=== PATIENT | male | born 1960 ===

== ENCOUNTER 2017-06-14 14:10 | Inpatient (IN) | payer OTHER, MEDICARE ==
[~2017-06-14] VITALS: Ht 188 cm; Wt 134.2 kg
[2017-06-14] MEDS ORDERED: NURSING INFORMATION XX SCH (15:00)
[2017-06-14] MEDS ORDERED: CHLORHEXIDINE GLUCONATE 2 % 1 PACK (2 CLOTHS) TOP PRN (15:00)
[2017-06-14 16:00] VITALS: BP 146/91; PULSE 92; RESP 20; TEMP 98.3; O2SAT 95
[2017-06-14] MEDS ORDERED: RESP: ALBUTEROL 2.5 MG/IPRATROPIUM 0.5 MG NEB (PRN) INH (16:00)
[2017-06-14] MEDS: ENOXAPARIN SODIUM 40 MG/0.4 ML SYRINGE SQ SCH (16:00)
--- NOTE | 2017-06-14 16:13 | HHI.HP ---
HPI Service Critical Care Medicine Primary Care Physician Unknown Admission Diagnosis Diagnosis: (1) Acute CVA (cerebrovascular accident) Diagnosis: Principal (2) Left hemiparesis Diagnosis: Principal (3) CAD (coronary artery disease) Diagnosis: Secondary (4) Hypertension Diagnosis: Secondary (5) Diabetes Diagnosis: Secondary (6) Obesity Diagnosis: Secondary Chief Complaint: Acute CVA with left hemiparesis Travel History International Travel<30 Days: No Contact w/Intl Traveler <30 Da: No Traveled to Known Affected Are: No History of Present Illness Patient is a 57-year-old male with past medical history significant for coronary artery disease, acute NH, diabetes, hypertension, kidney stones, thyroid disease who presented to the [facility] ER with history of acute onset left-sided weakness and numbness and blurry vision in the left eye. A stat CT of the head was negative for acute findings. Telemetry neurologist was consulted who recommended against TPA. Patient was transferred to [facility] for further workup including MRI and MRA, and evaluation for IR intervention as needed. I evaluated the patient in the ICU. He is not in any acute distress but continues to have 4 out of 5 power in the left side. Sensations preserved. NIH stroke scale 2. Neurology consulted, MRI MRA of the brain and neck ordered Review of Systems ROS Limitations: Other (as per HPI) Past Family Social History Allergies: Coded Allergies: Penicillins (Verified Allergy, Unknown, 06/14/17) codeine (Verified Allergy, Unknown, 06/14/17) levofloxacin (Verified Allergy, Unknown, 06/14/17) Past Medical History Coronary artery disease Hypertension DM-2 Obesity Past tobacco use Glaucoma Thyroid disease Kidney stones Past Surgical History Multiple coronary artery stents and cardiac catheterizations Appendectomy Reported Medications Imdur Nitrostat as needed Sertraline Amlodipine Lantus Tradjenta Metformin Xalatan eyedrops Crestor Fenofibrate Sliding-scale insulin Synthroid Metoprolol Aspirin Plavix Active Ordered Medications Reviewed Family History Family history was reviewed with the patient Social History Quit smoking about 5 years ago Do not drink alcohol at all now Physical Exam Physical Exam GENERAL: Sitting comfortably on bed no acute distress SKIN: Focused skin assessment warm/dry. HEAD: Atraumatic. Normocephalic. EYES: Pupils equal and round, reactive to light. No scleral icterus. ENT: No nasal bleeding or discharge. No facial drooping noted NECK: Trachea midline. No JVD. CARDIOVASCULAR: Regular rate and rhythm. No murmur appreciated. RESPIRATORY: Clear to auscultation. Breath sounds equal bilaterally. GASTROINTESTINAL: Abdomen soft, non-tender, nondistended. Hepatic and splenic margins not palpable. MUSCULOSKELETAL: No obvious deformities. No clubbing. No cyanosis. No edema. NEUROLOGICAL: Pupils are equal reactive to light. Patient following commands bilateral upper and lower extremity. Normal muscle power on the right side, 4 out of 5 power on the left upper and lower extremities. NIH stroke scale [address] of the head at [facility] showed no acute findings Septic Shock Reassessment Septic shock perfusion: reassessment completed Caprini VTE Risk Assessment Caprini VTE Risk Assessment: Mod/High Risk (score >= 2) Caprini Risk Assessment Model Point Value = 1 Point Value = 2 Point Value = 3 Point Value = 5 Age 41-60 Minor surgery BMI > 25 kg/m2 Swollen legs Varicose veins or History of unexplained or recurrent spontaneous Oral contraceptives or hormone replacement Sepsis (< 1 month) Serious lung disease, including pneumonia (< 1 month) Abnormal pulmonary function Acute myocardial infarction Congestive heart failure (< 1 month) History of inflammatory bowel disease Medical patient at bed rest Age 61-74 Arthroscopic surgery Major open surgery (> 45 min) Laparoscopic surgery (> 45 min) Malignancy Confined to bed (> 72 hours) Immobilizing plaster cast Central venous access Age >= 75 History of VTE Family history of VTE Factor V Leiden Prothrombin [id number] Lupus anticoagulant Anticardiolipin antibodies Elevated serum homocysteine Heparin-induced thrombocytopenia Other congenital or acquired thrombophilia Stroke (< 1 month) Elective arthroplasty Hip, pelvis, or leg fracture Acute spinal cord injury (< 1 month) Prophylaxis Regimen Total Risk Factor Score Risk Level Prophylaxis Regimen 0-1 Low Early ambulation 2 Moderate Order ONE of the following: *Sequential Compression Device (SCD) *Heparin 5000 units SQ BID 3-4 Higher Order ONE of the following medications: *Heparin 5000 units SQ TID *Enoxaparin/Lovenox 40 mg SQ daily (WT < 150 kg, CrCl > 30 mL/min) *Enoxaparin/Lovenox 30 mg SQ daily (WT < 150 kg, CrCl > 10-29 mL/min) *Enoxaparin/Lovenox 30 mg SQ BID (WT < 150 kg, CrCl > 30 mL/min) AND/OR *Sequential Compression Device (SCD) 5 or more Highest Order ONE of the following medications: *Heparin 5000 units SQ TID (Preferred with Epidurals) *Enoxaparin/Lovenox 40 mg SQ daily (WT < 150 kg, CrCl > 30 mL/min) *Enoxaparin/Lovenox 30 mg SQ daily (WT < 150 kg, CrCl > 10-29 mL/min) *Enoxaparin/Lovenox 30 mg SQ BID (WT < 150 kg, CrCl > 30 mL/min) AND *Sequential Compression Device (SCD) Assessment and Plan Assessment and Plan NEURO: Probable acute right MCA stroke with left hemiparesis -CT of the head did not show any acute findings -Check MRI of the brain stat, MRA of brain and neck -Workup including TSH B12 folic acid 2D echo ordered -Neurology consult -Continue aspirin Plavix -Target systolic blood pressure in 180s -PT/OT RESP: Past tobacco abuse -Nasal cannula oxygen -DuoNeb every 6 hours as needed CV: CAD with multiple stents -Continue aspirin, Plavix, metoprolol and Crestor -Hold Norvasc, losartan, Imdur. continue PRN nitro -2 D Echo ordered -Normal saline IV fluids -Target systolic blood pressure approximately at 180/100 due to possible acute stroke GI: -Bedside swallow eval. start 1999 ADA diet -Famotidine for GI prophylaxis : -Monitor renal function closely. Strict intake output ID: -Monitor for infection HEME: -Monitor CBC, CMP ENDO: Type 2 diabetes -Hold home Lantus, metformin, Tradjenta, Novolin -Placed on Levemir 30 every 12 with NovoLog sliding scale PROPH: -Bilateral lower extremity SCDs. Lovenox 40 mg subcu daily. Famotidine for GI prophylaxis LINES: -Utilize peripheral IVs, central line if needed Level 3 new admit Code Status Full Discussed Condition With Bedside RN and patient Problem Qualifiers (1) CAD (coronary artery disease): (2) Diabetes: Nikos Peterson MD Jun 14, 2017 16:13
[2017-06-14] MEDS ORDERED: ROSU1TAB10 PO (16:59)
[2017-06-14] MEDS ORDERED: FENO160T PO (16:59)
[2017-06-14] MEDS ORDERED: LEVO200T4 PO (16:59)
[2017-06-14] MEDS ORDERED: METO50TA PO (16:59)
[2017-06-14] MEDS ORDERED: METF850T PO (16:59)
[2017-06-14] MEDS ORDERED: LANTUS2P SQ ×2 (16:59)
[2017-06-14] MEDS ORDERED: SERT-129 PO (16:59)
[2017-06-14] MEDS ORDERED: AMLO5TAB2 PO (16:59)
[2017-06-14] MEDS ORDERED: NITR1SUB3 SL (16:59)
[2017-06-14] MEDS ORDERED: ISOS60TA PO (16:59)
[2017-06-14] MEDS ORDERED: CLOP75TA PO (16:59)
[2017-06-14] MEDS ORDERED: LOSA100T PO (16:59)
[2017-06-14] MEDS ORDERED: TRAD5TAB PO (16:59)
[2017-06-14] MEDS ORDERED: NOVORP2 SQ (16:59)
[2017-06-14] MEDS ORDERED: ESCI20TA PO (16:59)
[2017-06-14] MEDS: INSULIN ASPART SUPPLEMENTAL SCALE SQ SCH ×2 (17:00→20:52)
[2017-06-14] MEDS ORDERED: GADODIAMIDE PF 287 MG/ML 20 ML VIAL (for RAD MRI) IVCONTRAST ONE (17:46)
--- NOTE | 2017-06-14 17:52 | RADRPT ---
EXAM DATE/TIME: 06/14/2017 16:34 [facility] COMPARISON: No previous studies available for comparison. INDICATIONS : Left sided weakness. MEDICAL HISTORY : Hypertension. Diabetes mellitus type 2. Cardiovascular disease. SURGICAL HISTORY : Coronary artery stent. Appendectomy. ENCOUNTER: Initial ACUITY: 1 day PAIN SCORE: 0/10 LOCATION: cranial Please note a normal MRA of the brain does not entirely exclude the possibility of a small aneurysm, nor the possibility of distal intracranial vessel disease. TECHNIQUE: 3D time of flight MRA was performed. Source images, multiplanar STS MIP, and 3D volume MIP reconstru ctions were reviewed. FINDINGS: There is excellent visualization of the major intracranial arteries out to the second-order branch ve ssels. There is no evidence for aneurysm, vessel truncation or stenosis, and no evidence for vascula r malformation. Anterior communicating artery. Anatomic variant of anterior cerebral artery. Vertebro basilar junction normal. Posterior cerebral arteries are not seen. CONCLUSION: 1. No large vessel stenosis or aneurysm. 2. Normal anatomic variants. Fidencio Kilgore MD on June 14, 2017 at 17:46 Board Certified Radiologist. This report was verified electronically.
--- NOTE | 2017-06-14 17:54 | RADRPT ---
EXAM DATE/TIME: 06/14/2017 16:34 [facility] COMPARISON: No previous studies available for comparison. INDICATIONS : Left sided weakness. MEDICAL HISTORY : Diabetes mellitus type 2. Hypertension. Cardiovascular disease. SURGICAL HISTORY : Coronary artery stent. Appendectomy. ENCOUNTER: Initial ACUITY: 1 day PAIN SCORE: 0/10 LOCATION: cranial TECHNIQUE: Multiplanar, multisequence MRI of the brain was performed without contrast. FINDINGS: CEREBRUM: The ventricles are normal for age. There is a mild area of subcortical increased signal seen in the parietal region on flair images. There is also a few punctate areas of increased signal within the ce rebral white matter. No evidence of midline shift, mass lesion, hemorrhage or acute infarction. No e xtraaxial fluid collections are seen. The pituitary gland and suprasellar cistern are normal in conf iguration. POSTERIOR FOSSA: The cerebellum and brainstem are intact. The 4th ventricle is midline. The cerebellopontine angle is unremarkable. The cerebellar tonsils are normal in position. DIFFUSION IMAGING: No focal areas of restricted diffusion are seen. No evidence of acute infarction. EXTRACRANIAL: The visualized portions of the orbits and paranasal sinuses are unremarkable. CONCLUSION: Mild area of subcortical increased signal likely from prior insult or focal areas of demyelination in the left parietal lobe. There are also a few punctate areas of demyelination within the cerebral whi te matter. No acute areas of hemorrhage, acute infarction, or mass effect are seen. Nicholas Whitt MD on June 14, 2017 at 17:48 Board Certified Radiologist. This report was verified electronically.
[2017-06-14 18:00] VITALS: PULSE 92
[2017-06-14] MEDS ORDERED: NITROGLYCERIN 0.4 MG SL 25 TABS/BTL SL PRN (18:00)
--- NOTE | 2017-06-14 18:15 | RADRPT ---
EXAM DATE/TIME: 06/14/2017 16:34 [facility] COMPARISON: No previous studies available for comparison. INDICATIONS : Left sided weakness. CONTRAST: 20 cc Omniscan (gadodiamide) IV MEDICAL HISTORY : Hypertension. Cardiovascular disease Diabetes mellitus type 2. SURGICAL HISTORY : Coronary artery stent. Appendectomy. ENCOUNTER: Initial ACUITY: 1 day PAIN SCORE: 0/10 LOCATION: neck Percent stenosis is calculated using the diameter of the stenotic region over the diameter of the nor mal distal internal carotid artery. TECHNIQUE: Bolus infused MRA of the extracranial circulation was performed using a neurovascular coil. Post pro cessing was performed including rotating subvolume maximum intensity projections of each carotid geovanna ry, rotating full volume maximum intensity projections of both carotid arteries, sagittal and coronal sliding thin slab reformations of each carotid artery, and left oblique sliding thin slab reformatio n through the aortic arch to include the origin of the arch branch vessels. FINDINGS: AORTIC ARCH: There is a three vessel origin of the great vessels from the aorta. No evidence of ostial narrowing. RIGHT CAROTID: The common carotid artery is intact. The carotid bulb has a normal configuration without ulceration o r narrowing. The internal carotid artery lumen is smooth without stenosis.The external carotid arter y is intact. LEFT CAROTID: The common carotid artery is intact. Focal stenosis involving the proximal right internal carotid ar laura. The external carotid artery is intact. VERTEBRALS: The vertebral arteries have a symmetric diameter. No stenotic lesions are seen. CONCLUSION: 1. Focal stenosis involving the proximal left internal carotid artery suggesting 70% stenosis. Charac terization with CTA carotid arteries recommended. 2. No significant stenosis within the right internal carotid artery. Fidencio Kilgore MD on June 14, 2017 at 18:09 Board Certified Radiologist. This report was verified electronically.
[2017-06-14 20:00] VITALS: BP 146/91; PULSE 100; RESP 37; TEMP 98.6; O2SAT 96
[2017-06-14] MEDS ORDERED: ACETAMINOPHEN 325 MG TAB PO PRN (20:30)
[2017-06-14] MEDS: METOPROLOL TARTRATE 50 MG TAB PO SCH (20:32)
[2017-06-14] MEDS: SERTRALINE HCL 100 MG TAB PO SCH (20:32)
[2017-06-14] MEDS: FAMOTIDINE 20 MG/2 ML VIAL IV PUSH SCH (20:33)
[2017-06-14] MEDS: INSULIN DETEMIR 100 UNITS/ML VIAL SQ SCH (20:51)
--- NOTE | 2017-06-14 21:42 | PD.CAR.PN ---
CVT Progress Note Subjective/Hospital Course: Referral received Full consult TF Thanks J 06/15/2017 patient with the 70-80% left internal carotid artery stenosis and TIA. This patient is a prime candidate for carotid endarterectomy and procedure should be performed at this admission barring any surprises with cardiac workup Echocardiogram ordered Patient is now debating whether he wants to have surgery and that is up to him I have explained the risks and benefits. Thanks J Objective: Vital Signs Date Time Temp Pulse Resp B/P (MAP) Pulse Ox O2 Delivery O2 Flow Rate FiO2 06/14/17 18:00 92 06/14/17 16:00 98.3 92 20 146/91 (109) 95 06/14/17 16:00 92 Labs: Laboratory Tests Test 06/14/17 16:21 Troponin I LESS THAN 0.02 NG/ML Davion Harvey MD Jun 14, 2017 21:42
[2017-06-14 22:00] VITALS: PULSE 90
[2017-06-14 23:37] LABS: ALBUMIN 3.4 GM/DL (3.4-5.0); ALT (GPT) 34 U/L (12-78); AST (GOT) 32 U/L (15-37); BICARBONATE 23.2 MEQ/L (21.0-32.0); BLOOD UREA NITROGEN 21 MG/DL (7-18); CALCIUM 8.8 MG/DL (8.5-10.1); CHLORIDE 111 MEQ/L (98-107); GLOMERULAR FILTRATION RATE 52 ML/MIN (>89); GLUCOSE,RANDOM 179 MG/DL (74-106); MAGNESIUM 2.2 MG/DL (1.5-2.5); SODIUM (NA) 143 MEQ/L (136-145)
[2017-06-15] VITALS: BP 143/92; PULSE 80; PULSE 90; RESP 16; TEMP 98.3; O2SAT 95
[2017-06-15 00:03] LABS: ALKALINE PHOSPHATASE 71 U/L (45-117); TOTAL BILIRUBIN ADULT 0.3 MG/DL (0.2-1.0); TOTAL PROTEIN 6.6 GM/DL (6.4-8.2); TROPONIN I LESS THAN 0.02 NG/ML (0.02-0.05)
[2017-06-15 02:00] VITALS: PULSE 80
[2017-06-15] MEDS: SODIUM CHLOR 0.9% 1000 ML INJ 1,000 ML IV SCH ×3 (02:51→14:46)
[2017-06-15 04:00] VITALS: BP 117/73; PULSE 76; RESP 15; TEMP 98.6; O2SAT 95
[2017-06-15] MEDS ORDERED: CHLORHEXIDINE GLUCONATE 2 % 1 PACK (2 CLOTHS) TOP SCH (04:00)
[2017-06-15 04:27] LABS: AUTOMATED NEUTROPHIL # 3.8 TH/MM3 (1.8-7.7); BASOPHIL % 0.5 % (0.0-2.0); EOSINOPHIL # 0.2 TH/MM3 (0-0.4); HEMATOCRIT 40.8 % (39.0-51.0); HEMOGLOBIN 13.7 GM/DL (13.0-17.0); LYMPH % 23.2 % (9.0-44.0); LYMPHOCYTE # 1.4 TH/MM3 (1.0-4.8); MEAN CELL VOLUME 85.9 FL (80.0-100.0); MEAN CORPUSCULAR HEMOGLOBIN 28.8 PG (27.0-34.0); MEAN CORPUSCULAR HGB CONC 33.5 % (32.0-36.0); MEAN PLATELET VOLUME 9.6 FL (7.0-11.0); MONO % 7.6 % (0.0-8.0); MONOCYTE # 0.5 TH/MM3 (0-0.9); NEUT % 64.7 % (16.0-70.0); PLATELET COUNT 209 TH/MM3 (150-450); RED BLOOD COUNT 4.75 MIL/MM3 (4.50-5.90); RED CELL DISTRIBUTION WIDTH 15.1 % (11.6-17.2); WHITE BLOOD COUNT 5.9 TH/MM3 (4.0-11.0)
[2017-06-15 04:50] LABS: ALBUMIN 3.4 GM/DL (3.4-5.0); ALT (GPT) 34 U/L (12-78); AST (GOT) 32 U/L (15-37); BICARBONATE 23.5 MEQ/L (21.0-32.0); BLOOD UREA NITROGEN 23 MG/DL (7-18); CALCIUM 8.9 MG/DL (8.5-10.1); CHLORIDE 113 MEQ/L (98-107); CHOLESTEROL 171 MG/DL (120-200); CREATININE 1.35 MG/DL (0.60-1.30); GLOMERULAR FILTRATION RATE 55 ML/MIN (>89); GLUCOSE,RANDOM 138 MG/DL (74-106); MAGNESIUM 2.2 MG/DL (1.5-2.5); PHOSPHORUS 3.4 MG/DL (2.5-4.9); SODIUM (NA) 145 MEQ/L (136-145); TRIGLYCERIDES 303 MG/DL (42-150)
[2017-06-15 04:53] LABS: ALKALINE PHOSPHATASE 60 U/L (45-117); FREE T4 1.03 NG/DL (0.76-1.46); HDL CHOLESTEROL 17.1 MG/DL (40.0-60.0); LDL CHOLESTEROL 93 MG/DL (0-99); TOTAL BILIRUBIN ADULT 0.3 MG/DL (0.2-1.0); TOTAL PROTEIN 6.7 GM/DL (6.4-8.2)
[2017-06-15 06:00] VITALS: PULSE 70
[2017-06-15 08:00] VITALS: BP 132/89; PULSE 73; RESP 15; TEMP 98.6; O2SAT 97
[2017-06-15] MEDS: INSULIN ASPART SUPPLEMENTAL SCALE SQ SCH ×3 (08:00→17:00)
--- NOTE | 2017-06-15 08:05 | MB ---
cc: Camilo Gonzalez MD, PhD DATE: 06/15/2017 REASON FOR CONSULTATION: Stroke. HISTORY OF PRESENT ILLNESS: Mr. Reynaga is a 57-year-old man who was in his usual state of health until yesterday when he suddenly developed left-sided weakness. He presented to the emergency room at [facility], stat head CT negative for any acute changes. He was evaluated by Telemedicine Neurology. Apparently TPA was recommended against. He was transferred to [facility] for further evaluation. The patient continues with weakness on the left side, perhaps a little bit better, but still significantly weak. He denies any double vision or headache. PAST MEDICAL HISTORY: History of coronary artery disease, MS in the past, diabetes, hypertension, kidney stones, thyroid disease, obesity, glaucoma. MEDICATIONS AT HOME: 1. Imdur. 2. Nitrostat. 3. Sertraline. 4. Amlodipine. 5. Lantus, 6. Tradjenta. 7. Metformin, 8. Dilantin. 9. Crestor. 10. Fenofibrate. 11. Synthroid. 12. Metoprolol. 13. Aspirin. 14. Plavix. SOCIAL HISTORY: He stopped smoking about 5 years ago. No alcohol use currently. NEUROLOGICAL EXAMINATION: VITAL SIGNS: Blood pressure is 117/73, pulse 76, respiratory rate is 15, temperature 98 degrees. HIGHER CORTICAL FUNCTIONS: Normal. CRANIAL NERVES: Intact except for very mild left facial droop. MOTOR: He has got a left hemiparesis. The left arm is 4/5, left leg 4-/5. He has got normal strength in the right. Reflexes are symmetric. IMAGING STUDIES: A brain MRI scan shows encephalomalacia, increased signal probably from prior insults in the left parietal lobe with focal demyelinization. No acute changes present. No evidence of acute stroke is identified on the MRI brain. MRA is unremarkable. MRA of the neck shows focal stenosis involving the proximal left internal carotid artery, approximately 70%. LABORATORY DATA: The white count 5900; hemoglobin 13.7; hematocrit 40.8%; platelet count 209,000. Sodium is 145, potassium is 4, chloride 113, CO2 is 23.5. The BUN is 23, creatinine 1.35, GFR is 55, glucose 138. The LDL 93, cholesterol 171, triglycerides 303, HDL 17. ASSESSMENT AND PLAN: Acute onset of left-sided weakness involving the arm and leg. The symptoms are suggestive of a stroke; however, the MRI of the brain does not indicate an acute infarction, although I think it is still possible he may have had a very small infarct, not detectable. However, I would like to get a cervical spine MRI to be sure there is no evidence of any hemicord syndrome causing his weakness. He does have what appears to be carotid artery stenosis on the left side of 70%, which is currently being evaluated by Dr. Harvey. For now would continue the Plavix. I would like to get echocardiogram to be sure there is no cardioembolic source. Continue to monitor telemetry to rule out atrial fibrillation. His LDL is elevated, but he is on Lipitor. Camilo Gonzalez MD, PhD JULI/IVANIA , 07:49 AM , 08:04 AM
[2017-06-15] MEDS ORDERED: LEVOTHYROXINE SODIUM 200 MCG TAB PO SCH (09:00)
[2017-06-15] MEDS ORDERED: ESCITALOPRAM OXALATE 20 MG TAB PO SCH (09:00)
[2017-06-15] MEDS ORDERED: CLOPIDOGREL 75 MG TAB PO SCH (09:00)
[2017-06-15] MEDS ORDERED: ATORVASTATIN 80 MG TAB PO SCH (09:00)
--- NOTE | 2017-06-15 09:16 | RADRPT ---
EXAM DATE/TIME: 06/15/2017 08:46 [facility] COMPARISON: MRI BRAIN W/O CONTRAST, June 14, 2017, 16:34. INDICATIONS : Extremity numbness. Left side weakness, headaches, dizziness. MEDICAL HISTORY : Hypertension. Diabetes mellitus type 2. Cardiovascular disease. [place] SURGICAL HISTORY : Appendectomy. Coronary artery stent. ENCOUNTER: Initial ACUITY: 2 day PAIN SCORE: 3/10 LOCATION: Left upper extremity. TECHNIQUE: Multiplanar, multisequence MRI examination of the cervical spine was performed. FINDINGS: Alignment is normal. There is mild disc desiccation, and mild anterior osteophyte formation is seen. The spinal cord is normal in appearance. Mild multilevel facet hypertrophic changes are noted. C2-C3: The thecal sac has a normal configuration. There is no evidence of disc herniation or spinal canal s tenosis. The neural foramina are patent bilaterally. C3-C4: Diffuse disc bulge with mild canal narrowing and effacement of the ventral thecal sac. Facet hypertro phy and trace left foraminal encroachment. C4-C5: Mild diffuse disc bulge with mild canal narrowing at slight ventral impression on the cord. There is facet hypertrophy and mild left foraminal encroachment. C5-C6: Diffuse disc bulge with slight ventral flattening of the cord surface and effacement of the ventral t hecal sac. Facet hypertrophy. C6-C7: Minimal central disc bulge without canal or foraminal narrowing. C7-T1: Tiny central disc protrusion abuts the cord with slight ventral concave compression. No significant c anal or foraminal stenosis. CONCLUSION: Degenerative changes are noted as above. Meliton Ricci MD on June 15, 2017 at 9:12 Board Certified Radiologist. This report was verified electronically.
[2017-06-15] MEDS: METOPROLOL TARTRATE 50 MG TAB PO SCH (10:02)
[2017-06-15] MEDS: FAMOTIDINE 20 MG/2 ML VIAL IV PUSH SCH (10:02)
[2017-06-15] MEDS: SERTRALINE HCL 100 MG TAB PO SCH (10:03)
[2017-06-15] MEDS: INSULIN DETEMIR 100 UNITS/ML VIAL SQ SCH (10:03)
--- NOTE | 2017-06-15 11:01 | HHI.PR ---
Objective Vitals Vital Signs Date Time Temp Pulse Resp B/P (MAP) Pulse Ox O2 Delivery O2 Flow Rate FiO2 06/15/17 08:00 73 06/15/17 08:00 98.6 73 15 132/89 (103) 97 06/15/17 07:00 97 Room Air 06/15/17 06:00 70 06/15/17 04:00 76 06/15/17 04:00 98.6 76 15 117/73 (88) 95 06/15/17 02:00 80 06/15/17 00:00 90 06/15/17 00:00 98.3 80 16 143/92 (109) 95 06/14/17 22:00 90 06/14/17 20:00 100 06/14/17 20:00 98.6 100 37 146/91 (109) 96 06/14/17 19:00 95 Room Air 06/14/17 18:00 92 06/14/17 16:00 98.3 92 20 146/91 (109) 95 06/14/17 16:00 92 I/O 06/14/17 06/14/17 06/14/17 06/15/17 06/15/17 06/15/17 07:00 15:00 23:00 07:00 15:00 23:00 Intake Total 240 ml 240 ml Output Total 0 ml Balance 240 ml 240 ml Intake Oral 240 ml 240 ml Output Urine Total 0 ml # Voids 1 # Bowel Movements 0 Result Diagram: 06/15/178 06/15/17337 Objective Remarks GENERAL: This is a well-nourished, well-developed patient, in no apparent distress. CARDIOVASCULAR: Regular rate and rhythm without murmurs, gallops, or rubs. RESPIRATORY: Clear to auscultation. Breath sounds equal bilaterally. No wheezes , rales, or rhonchi. GASTROINTESTINAL: Abdomen soft, non-tender, nondistended. Normal active bowel sounds MUSCULOSKELETAL: Extremities without clubbing, cyanosis, or edema. NEURO: Alert & Oriented x4 to person, place, time, situation. Moves all ext x4. Left side 4+/5 compared to right 5/5 strength. A/P Problem List: (1) Acute CVA (cerebrovascular accident) ICD Code: I63.9 - Cerebral infarction, unspecified (2) Left hemiparesis ICD Code: G81.94 - Hemiplegia, unspecified affecting left nondominant side (3) CAD (coronary artery disease) ICD Code: I25.10 - Atherosclerotic heart disease of [place] coronary artery without angina pectoris (4) Hypertension ICD Code: I10 - Essential (primary) hypertension (5) Diabetes ICD Code: E11.9 - Type 2 diabetes mellitus without complications (6) Obesity ICD Code: E66.9 - Obesity, unspecified Assessment and Plan Probable acute right MCA stroke with left hemiparesis Left carotid artery stenosis -CT of the head did not show any acute findings -MRI of the brain shows some prior insult but nothing acute. However symptoms consistent with CVA. Carotid artery stenosis noted. -Continue Plavix -Patient evaluated by Vascular surgery who recommends outpatient follow up for carotid endarterectomy. CAD with multiple stents -Continue aspirin, Plavix, metoprolol and Crestor -Hold Norvasc, losartan, Imdur. continue PRN nitro -2 D Echo results noted. - Outpatient follow up with Cardiology. Hypertension: - I questioned his compliance. Supposed to be on 4 antihypertensive agents at home. However only required one here - Advised outpatient follow up with PCP. Type 2 diabetes -Hold home Lantus, metformin, Tradjenta, Novolin -Stable on Levemir 30 every 12 with NovoLog sliding scale -Bilateral lower extremity SCDs. Lovenox 40 mg subcu daily. Famotidine for GI prophylaxis Problem Qualifiers (1) CAD (coronary artery disease): (2) Diabetes: Tam Phelan MD Jun 15, 2017 11:01
[2017-06-15 12:00] VITALS: BP 144/75; PULSE 85; RESP 23; TEMP 99; O2SAT 95
--- NOTE | 2017-06-15 12:56 | MB ---
cc: Davion Harvey MD DATE: 06/15/2017 CONSULTING PHYSICIAN: Davion Harvey MD REASON FOR CONSULTATION: TIA. HISTORY OF PRESENT DISEASE: A 57-year-old male with history of coronary artery disease, [place], diabetes mellitus, hypertension and hypothyroidism, presented to [facility] with left-sided weakness, numbness, vision change in left eye. CT and MRI are negative for acute findings. MRA of the carotids reveals about 70%+ stenosis of the left internal carotid artery and hence, the consultation. PAST MEDICAL HISTORY: Coronary artery disease, hypertension, obesity, diabetes mellitus, glaucoma, and hypothyroidism as well as chronic renal insufficiency. PAST SURGICAL HISTORY: Multiple arterial coronary stents and appendectomy. MEDICATIONS: The patient has multiple drugs including Plavix, aspirin, Synthroid, Crestor, insulin, metformin, Tradjenta, Lantus, amlodipine, . He is morbidly obese. SOCIAL HISTORY: Quit smoking about a few years ago, does not drink anymore. PHYSICAL EXAMINATION: GENERAL: Reveals 57-year-old male. As noted, patient is obese. HEENT: Normocephalic. No trauma to the head. Pupils equal, reactive. Extraocular muscles are intact. NECK: Supple. Bilateral carotid pulses. Initially, I do not perceive any bruits. CHEST: Clear. Decreased breath sounds over both lung ruiz consistent with some mild COPD. HEART: Regular rhythm. ABDOMEN: Obese, soft, active bowel sounds. No rebound, no guarding, no masses. EXTREMITIES: Grossly within normal limits with some pretibial swelling and foot swelling consistent with pretibial edema of hypertension. BACK: Grossly normal. IMPRESSION: A 57-year-old male appearing much older than his actual age with focal left internal carotid artery stenosis and corresponding neurologic symptoms. Based on the above, patient is a candidate for carotid endarterectomy provided no surprises occur on cardiac workup. I have explained the risks and benefits to the patient. The risk of open carotid endarterectomy is about 1% stroke rate versus the endovascular, which is about 3% to 5% stroke rate. Therefore, about 300% higher. At this point, I recommend a left internal endarterectomy, provided his cardiac workup is adequate. Patient can have cardiac workup on an outpatient basis and have elective carotid endarterectomy. I explained the risks and benefits to the patient and he will think about it but does not readily agreed to either cardiac workup of the surgery itself. CRITICAL CARE: 35 minutes. MD SHIVA Ríos/MAXX , 12:36 PM , 12:55 PM CORINE
[2017-06-15 13:20] LABS: HEMOGLOBIN A1C 7.7 % (4.3-6.0)
--- NOTE | 2017-06-15 13:38 | ECHRPT ---
Indication: CONCLUSIONS The left ventricular systolic function is low normal with an estimated ejection fraction in the rang e of 50- 55%. Doppler parameters are consistent with impaired left ventricular relaxtion (grade 1 diastolic dysfun ction). Trace mitral valve regurgitation. There is trace tricuspid valve regurgitation. BP: / HR: Rhythm: MEASUREMENTS (Male / Female) Normal Values Technical Quality: 2D ECHO LV Diastolic Diameter PLAX 5.8 cm 4.2 - 5.9 / 3.9 - 5.3 cm LV Systolic Diameter PLAX 4.8 cm IVS Diastolic Thickness 1.0 cm 0.6 - 1.0 / 0.6 - 0.9 cm LVPW Diastolic Thickness 0.8 cm 0.6 - 1.0 / 0.6 - 0.9 cm LV Relative Wall Thickness 0.3 RV Internal Dim ED PLAX 2.9 cm LA Systolic Diameter LX 3.3 cm 3.0 - 4.0 / 2.7 - 3.8 cm DOPPLER Mitral E Point Velocity 73.1 cm/s Mitral A Point Velocity 96.3 cm/s Mitral E to A Ratio 0.8 TR Peak Velocity 113.0 cm/s TR Peak Gradient 5.1 mmHg FINDINGS LEFT VENTRICLE Normal left ventricular size. Wall thickness is normal. The left ventricular systolic function is low normal with an estimated ejection fraction in the rang e of 50- 55%. Doppler parameters are consistent with impaired left ventricular relaxtion (grade 1 diastolic dysfun ction). RIGHT VENTRICLE Normal right ventricular size and systolic function. LEFT ATRIUM The left atrial size is normal. RIGHT ATRIUM The right atrial size is normal. ATRIAL SEPTUM Normal atrial septal thickness AORTA The aortic root and proximal ascending aorta are normal in size on limited imaging. MITRAL VALVE Structurally normal mitral valve. Trace mitral valve regurgitation. No mitral valve stenosis. AORTIC VALVE Grossly normal aortic valve. No aortic valve stenosis or regurgitation. TRICUSPID VALVE Structurally normal tricuspid valve. There is trace tricuspid valve regurgitation. No tricuspid valve stenosis. PULMONARY VALVE The pulmonary valve is not well visualized. VESSELS The inferior vena cava is normal in size. PERICARDIUM No pericardial effusion. Deshaun Biggs DO (Electronically Signed) Final Date:15 June 2017 13:37
[2017-06-15] MEDS: ENOXAPARIN SODIUM 40 MG/0.4 ML SYRINGE SQ SCH (16:00)
--- NOTE | 2017-06-15 16:19 | PD.CAR.PN ---
CVT Progress Note Subjective/Hospital Course: Referral received Full consult TF Thanks J 06/15/2017 patient with the 70-80% left internal carotid artery stenosis and TIA. This patient is a prime candidate for carotid endarterectomy and procedure should be performed at this admission barring any surprises with cardiac workup Echocardiogram ordered Patient is now debating whether he wants to have surgery and that is up to him I have explained the risks and benefits. Thanks Deana 06/15/17 Discussed again with the patient and Dr Alves. Patient will have a stress test on outpatient basis and be re-admitted electively for carotid endarterectomy in a week or so. From my point he can be DC on Plavix or ASA Objective: Vital Signs Date Time Temp Pulse Resp B/P (MAP) Pulse Ox O2 Delivery O2 Flow Rate FiO2 06/15/17 12:00 85 06/15/17 12:00 99.0 85 23 144/75 (98) 95 06/15/17 08:00 73 06/15/17 08:00 98.6 73 15 132/89 (103) 97 06/15/17 07:00 97 Room Air 06/15/17 06:00 70 06/15/17 04:00 76 06/15/17 04:00 98.6 76 15 117/73 (88) 95 06/15/17 02:00 80 06/15/17 00:00 90 06/15/17 00:00 98.3 80 16 143/92 (109) 95 06/14/17 22:00 90 06/14/17 20:00 100 06/14/17 20:00 98.6 100 37 146/91 (109) 96 06/14/17 19:00 95 Room Air 06/14/17 18:00 92 Result Diagram: 06/15/17 0338 06/15/17 0338 Davion Harvey MD Jun 15, 2017 16:19
== END 2017-06-15 18:02 | disposition home or self-care (01) | DRG 65 ==
LOC: N03B 14:10 → N05A 06-15 13:19
PROVIDERS: ADMIT Family Medicine; ATTEND Family Medicine
DX: I63.232 Cerebral infarction due to unspecified occlusion or stenosis of left carotid arteries (principal); G81.94 Hemiplegia, unspecified affecting left nondominant side; I10 Essential (primary) hypertension; E11.9 Type 2 diabetes mellitus without complications; H53.8 Other visual disturbances; E66.9 Obesity, unspecified; R20.0 Anesthesia of skin; I25.10 Atherosclerotic heart disease of native coronary artery without angina pectoris; E03.9 Hypothyroidism, unspecified; Z68.38 Body mass index [BMI] 38.0-38.9, adult; Z95.5 Presence of coronary angioplasty implant and graft; I25.2 Old myocardial infarction; Z88.1 Allergy status to other antibiotic agents; Z88.5 Allergy status to narcotic agent; Z88.0 Allergy status to penicillin; Z87.891 Personal history of nicotine dependence; Z79.82 Long term (current) use of aspirin; Z79.4 Long term (current) use of insulin; Z79.899 Other long term (current) drug therapy
CPT/HCPCS: 70544; 70548; 70551; 72141; 80053; 80061; 82607; 82746; 82948; 83036; 83735; 84100; 84439; 84443; 84484; 85025; 93306; A9579; J1650; J1815; J7030